=== PATIENT | female | born 1960 | race Caucasian/White ===

== ENCOUNTER → 2016-10-14 | Outpatient (CLI) | payer BC ==
--- NOTE | 2016-10-14 15:50 | MR ---
EXAMINATION TYPE: MR knee LT wo con DATE OF EXAM: 10/14/2016 COMPARISON: Outside left knee x-ray October 01, 2016 HISTORY: Lt knee pain x 1 year, prior surgery TECHNIQUE: Multiplanar, multisequence images of the knee is performed without IV contrast. FINDINGS: MEDIAL MENISCUS: Anterior and posterior horns are intact without tear. LATERAL MENISCUS: Anterior and posterior horns are intact without tear. CRUCIATE LIGAMENTS: The anterior and posterior cruciate ligaments are intact and unremarkable. COLLATERAL LIGAMENTS: The medial collateral ligament and lateral collateral ligament complex are inta ct and unremarkable. EXTENSOR MECHANISM: Visualized quadriceps and patellar tendons are intact. EFFUSION: No significant suprapatellar joint effusion. POPLITEAL CYST: No popliteal/brown cyst. TRICOMPARTMENT SPACES: There is moderate to severe joint space loss patellofemoral compartment with m ild spurring. There is mild to moderate joint space loss and spurring lateral and medial tibiofemoral compartments. Prominent spur from the posterior aspect of the tibia is noted on sagittal image 17 co rrelates with lateral x-ray image. CARTILAGE: Chondromalacia patella is present with thinning of articular cartilage along posterior pat ellar pole, near full-thickness loss is present. There is marked thinning of articular cartilage medi al tibiofemoral compartment with full-thickness loss appreciated on sagittal image 21. BONE MARROW SIGNAL: Heterogeneity of bone marrow signal intensity consistent with red marrow reconver lee ann is present. OTHER: There is moderate superficial infrapatellar fluid. Hoffa's fat pad is maintained. IMPRESSION: 1. No meniscal or ligamentous tear is seen. 2. Fairly moderate to borderline severe tricompartment degenerative changes as detailed above.
== END | disposition home or self-care (01) ==
LOC: RADMRIMAIN 15:09
PROVIDERS: ATTEND Orthopaedic Surgery
DX: M25.562 Pain in left knee (principal)

== ENCOUNTER → 2017-07-24 | Outpatient (CLI) | payer BC | END | disposition home or self-care (01) | LOC: LABPAT 14:46 | PROVIDERS: ATTEND Orthopaedic Surgery | DX: Z01.812 Encounter for preprocedural laboratory examination (principal) | CPT/HCPCS: 87070 ==

== ENCOUNTER 2017-09-01 08:03 | Day surgery (SDC) | payer BC ==
[2017-08-25 11:35] VITALS: BMI 37.9
--- NOTE | 2017-08-31 12:38 | HP ---
HISTORY AND PHYSICAL Jania Beckman is a 57-year-old patient seen with symptomatic left knee osteoarthritis. Treatment options were discussed. She elected to proceed with left total knee arthroplasty. Consent was obtained. Clearance was provided by Dr. Woods. PAST MEDICAL HISTORY: Asthma, hypertension, gastroesophageal reflux disease. PAST SURGICAL HISTORY: section, left knee arthroscopy. MEDICATIONS: Advair, aspirin, atenolol, Prilosec, Singulair. ALLERGIES: ZOCOR, CIPRO, DEMEROL, PRAVACHOL, SYMBICORT, GABAPENTIN, WELLBUTRIN. SOCIAL HISTORY: Patient currently smokes 1 pack of cigarettes daily. PHYSICAL EXAMINATION: Evaluation of the left knee: Range of motion is -3 to 115 degrees. Tenderness medial joint line. Crepitus medial patellofemoral compartments with range of motion. Pain with patellofemoral compression. Ligaments stable. Hip rotation without pain. Distal neurovascular exam intact. RADIOGRAPHS: Radiographs of the left knee revealed severe medial and moderate patellofemoral compartment osteoarthritis. IMPRESSION: 1. Left knee osteoarthritis. 2. Hypertension. 3. Chronic obstructive pulmonary disease. 4. Gastroesophageal reflux disease. PLAN: Left total knee arthroplasty. MMODL / IJN: [id number] /
[~2017-09-01 08:03] MED LIST: ACETAMINOPHEN TAB 500 MG TAB PO ONE; DEXAMETHASONE SOD PHOSPHATE 10 MG/ML 1 ML VIAL IV ONE; HYDROmorphone 0.5 MG/0.5 ML SYRINGE IVP PRN; LIDOCAINE 1% 20 ML VIAL (10MG/ML) FOR IV START INTRADERMA PRN; MELOXICAM 7.5 MG TAB PO ONE; MIDAZOLAM 2 MG/2 ML VIAL IV PRN; ONDANSETRON 4 MG/2 ML VIAL IVP ONE; ONDANSETRON 4 MG/2 ML VIAL IVP PRN; SCOPOLAMINE 1.5MG/72HR PATCH TRANSDERM ONE; TRANEXAMIC ACID 1,000 MG in SODIUM CHLORIDE 0.9% 50 ML IVPB ONE; ceFAZolin IN SWFI 2 GM/20 ML SYRINGE IVP ONE; fentaNYL (PF) 50 MCG/ML 2 ML AMP IV PRN
[2017-09-01] MEDS: LACTATED RINGERS 1,000 ML IV SCH ×4 (08:40→14:15)
[2017-09-01] MEDS ORDERED: fentaNYL (PF) 50 MCG/ML 2 ML AMP ONE (09:54)
[2017-09-01] MEDS ORDERED: TRANEXAMIC ACID 1,000 MG/10 ML VIAL ONE (09:54)
[2017-09-01] MEDS ORDERED: PROPOFOL 10 MG/ML 20 ML VIAL IV ONE (09:54)
[2017-09-01] MEDS ORDERED: SODIUM CHLORIDE 0.9% 100 ML BAG ONE (09:54)
[2017-09-01] MEDS ORDERED: diphenhydrAMINE 50 MG/ML 1 ML VIAL ONE (09:54)
[2017-09-01] MEDS ORDERED: MIDAZOLAM 2 MG/2 ML VIAL ONE (09:54)
[2017-09-01] MEDS ORDERED: LIDOCAINE 1% INJ 10MG/ML (20 ML MDV) ONE (09:54)
[2017-09-01] MEDS ORDERED: ceFAZolin 3,000 MG in SODIUM CHLORIDE 0.9% IRRIGATIO 3,000 ML IRRIGATION ONE (10:33)
[2017-09-01] MEDS: ROPIVACAINE 246.25 MG, EPINEPHrine 0.5 MG, KETOROLAC 30 MG, cloNIDine HCL/PF 80 MCG, WA... MISCELLANE ONE ×10 (10:34→11:31)
[2017-09-01] MEDS ORDERED: ROPIVACAINE 1,100 MG, SODIUM CHLORIDE 0.9% 330 ML MISCELLANE PRN ×2 (10:42)
[2017-09-01] MEDS: LACTATED RINGERS 1,000 ML IV ONE ×2 (11:05→13:37)
[2017-09-01] MEDS ORDERED: LACTATED RINGERS 1,000 ML IV ONE ×4 (11:05)
[2017-09-01] MEDS ORDERED: HYDROcodone/APAP 7.5-325MG 1 EACH TAB PO PRN ×2 (12:00)
[2017-09-01] MEDS ORDERED: HYDROmorphone 0.5 MG/0.5 ML SYRINGE IVP PRN ×3 (12:00)
[2017-09-01] MEDS ORDERED: ONDANSETRON 4 MG/2 ML VIAL IVP PRN (12:00)
[2017-09-01] MEDS ORDERED: NALOXONE 0.4 MG/ML 1 ML VIAL IV PRN (12:00)
[2017-09-01] MEDS ORDERED: hydrOXYzine PAMOATE 25 MG CAP PO PRN (12:00)
--- NOTE | 2017-09-01 12:00 | P.OP ---
Date of Procedure: 09/01/17 Preoperative Diagnosis: Left knee osteoarthritis Postoperative Diagnosis: Left knee osteoarthritis Procedure(s) Performed: Left total knee arthroplasty Implants: 1. Microport evolution MP size 4 left cemented femoral component 2. Microport evolution size 4 left cemented tibial baseplate 3. Microport evolution size 4 left MP CS 12 mm polyethylene tibial insert 4. Microport advanced 35 mm cemented all polyethylene patella Anesthesia: regional (adductor canal catheter), local, spinal Surgeon: Horacio Alva Industrial Design Engineer #1: Titus Hughes Estimated Blood Loss (ml): 42 Pathology: other (Bone) Condition: stable Disposition: PACU Indications for Procedure: 57-year-old patient seen with symptomatic left knee osteoarthritis. After treatment options were discussed, she elected to proceed with total knee arthroplasty. Operative Findings: See description of procedure Description of Procedure: Patient was taken to the operative suite after having an adductor canal catheter placed by the department of anesthesia. Patient underwent a spinal anesthetic by the department of anesthesia. Patient was given preoperative IV intake antibiotics and TXA. A well-padded tourniquet was placed about the [] lower extremity. The lower extremity was then prepped and draped in the normal sterile orthopedic fashion. The extremity was elevated, a tourniquet was insufflated to 350. A standard anterior incision was made sharply through skin. Dissection was taken down through the subcutaneous soft tissues down to the extensor mechanism. A medial arthrotomy was performed, patella was everted and knee was flexed. There was advanced osteoarthritis noted. A proximal tibial cutting guide was positioned. Proximal tibial cut was made. A distal intramedullary femoral cutting guide was positioned, distal femoral cut made. We placed the appropriate sizing guide and selected the appropriate size. A distal 4-in-1 femoral cutting block was positioned, distal femoral cuts were made. We now placed a trial femoral component into position, along with an appropriate size tibial tray and insert. We now took the knee through range of motion and had full extension good flexion and good overall soft tissue balance noted. The patella was everted and a flush cut made with patellar quad tendon. We templated the patella, appropriate drill holes were made. An appropriate trial patella was positioned, knee was taken through full range of motion with the patella tracking very nicely. The trial patella was removed. Drill holes were made through the femoral component. All trial components were removed after marking off the appropriate rotation of the tibia. Retractors were now positioned along the proximal tibia. An appropriate keel punch was made with the appropriate size tibial guide. At this point appropriate size implants were chosen and opened. The joint was irrigated copiously with pulse lavage mechanical irrigation. The deep soft tissues and posterior capsule infiltrated with local analgesic. We mixed antibiotic methylmethacrylate. Once the methyl methacrylate was ready, the tibial component was cemented into place removing any excess methylmethacrylate. The femoral component was cemented into place removing the removing any excess methylmethacrylate. We then inserted the appropriate size polyethylene tibial insert. We made sure that it was locked into position. We took the knee into full extension, and then back in a flexion making sure we had removed any excess methylmethacrylate. The patellar component was then cemented down and secured with clamp. Excess methylmethacrylate removed. We kept the knee in full extension, patellar clamp in position until methylmethacrylate had hardened. Once it had hardened the patellar clamp was removed. The knee was taken through full range of motion. The patella tracked nicely. There was good soft tissue balancing. The tourniquet was now released. Additional hemostasis was achieved via electrocautery. A second gram of TXA was given. The wound was irrigated with pulse lavage mechanical irrigation. The superficial soft tissues were infiltrated local analgesic. The extensor mechanism was repaired with Vicryl. We checked the repair with range of motion and it was stable. The subcutaneous soft tissues were repaired with Vicryl in layers. The skin was approximated with pernio/Dermabond. Sterile dressings were applied followed by loose web roll and Clayton bandage. The patient was transferred to a bed, and taken to recovery in stable and satisfactory condition. Heri BLOCK assisted with the procedure.
--- NOTE | 2017-09-01 12:59 | XR ---
EXAMINATION TYPE: XR knee limited LT DATE OF EXAM: 09/01/2017 COMPARISON: NONE HISTORY: Knee replacement TECHNIQUE: 2 view left knee FINDINGS: Tibial and femoral components of in place. Postsurgical changes are evident within the knee joint space. No acute fractures are evident. IMPRESSION: 1. No acute fractures post knee replacement.
--- NOTE | 2017-09-01 14:00 | P.CONS ---
History of Present Illness - Reason for Consult Consult date: 09/01/17 - Chief Complaint Left knee pain - History of Present Illness 57-year-old female with history of severe bilateral knees osteoarthritis presented to the hospital for left total knee arthroplasty. Patient just came back from surgery, currently she is doing well, asking for food and water. She denied having any knee pain at this moment, no chest pain or shortness of breath. No recent illness, no fevers or chills. No nausea or vomiting, no diarrhea. Patient does have history of COPD and currently she continues to smoke. She tried Wellbutrin and Chantix in the past but both didn't work. Review of Systems 12 point review of system performed, negative except HPI Past Medical History Past Medical History: COPD, GERD/Reflux, Hyperlipidemia, Osteoarthritis (OA) Additional Past Medical History / Comment(s): irregular heartbeat, small stones in gallbladder, History of Any Multi-Drug Resistant Organisms: MRSA Year Discovered:: 2013 MDRO Source:: lower lip Past Surgical History: Section, Orthopedic Surgery Additional Past Surgical History / Comment(s): arthroscopy left knee Past Anesthesia/Blood Transfusion Reactions: No Reported Reaction Past Psychological History: No Psychological Hx Reported Smoking Status: Current every day smoker Past Alcohol Use History: None Reported Additional Past Alcohol Use History / Comment(s): smokes 1 PPD, has smoked for 30 yrs Past Drug Use History: None Reported - Past Family History Sister(s) Family Medical History: Cancer Medications and Allergies Home Medications Medication Instructions Recorded Confirmed Type Aspirin 325 mg PO W/SUPPER 08/25/17 09/01/17 History Atenolol 25 mg PO BID 08/25/17 09/01/17 History Fluticasone/Salmeterol [Advair 1 puff INHALATION RT-BID 08/25/17 09/01/17 History 500-50 Diskus] Ipratropium/Albuterol Sulfate 1 puff INHALATION RT-QID PRN 08/25/17 09/01/17 History [Combivent Respimat Inhaler] L.acidoph,Paracasei, B.lactis 1 cap PO DAILY 08/25/17 09/01/17 History [Probiotic] Multivitamins, Thera [Multivitamin 1 tab PO DAILY 08/25/17 09/01/17 History (formulary)] Goodrich-3 Fatty Acids [Goodrich-3] 1,000 mg PO BID 08/25/17 09/01/17 History Omeprazole [PriLOSEC] 20 mg PO AC-BRKFST 08/25/17 09/01/17 History Spiriva 2.5 Mcg 1 cap INHALATION RT-DAILY@1200 08/25/17 09/01/17 History guaiFENesin-DM 600/30MG [Mucinex 1 tab PO Q12HR PRN 08/25/17 09/01/17 History Dm] Allergies Allergy/AdvReac Type Severity Reaction Status Date / Time simvastatin [From Zocor] Allergy Intermediate Wheezing Verified 09/01/17 13:16 budesonide [From Symbicort] Allergy nervousness Verified 09/01/17 13:16 bupropion [From Wellbutrin] Allergy shaky Verified 09/01/17 13:16 feeling ciprofloxacin [From Cipro] Allergy Rash/Hives Verified 09/01/17 13:16 formoterol [From Symbicort] Allergy nervousness Verified 09/01/17 13:16 gabapentin Allergy blurry Verified 09/01/17 13:16 vision, disoriented, nausea meperidine [From Demerol] Allergy Itching/liseth Verified 09/01/17 13:16 h pravastatin [From Pravachol] Allergy muscle Verified 09/01/17 13:16 pain and cramping Physical Exam Vitals: Vital Signs Temp Pulse Pulse Resp BP BP Pulse Ox 09/01/17 13:00 66 16 131/6 97 09/01/17 12:42 71 16 126/56 96 09/01/17 12:27 67 16 124/61 96 09/01/17 12:12 97.4 F L 69 14 118/81 95 09/01/17 08:40 98.0 F 66 16 134/74 96 Intake and Output 08/31/17 09/01/17 09/01/17 22:59 06:59 14:59 Intake Total 1401 Output Total 42 Balance 1359 Intake: IV 1401 Output: Estimated Blood Loss 42 Other: Weight 97.069 kg Constitutional: No acute distress, conversant, pleasant Eyes:Anicteric sclerae, moist conjunctiva, no lid-lag, PERRLA, ENMT: Oropharynx clear, no erythema, exudates Neck: Supple, FROM, no masses, or JVD, No carotid bruits, No thyromegaly Lungs: Clear to auscultation, Clear to percussion, Normal respiratory effort, no accessory muscle use Cardiovascular: Heart regular in rate and rhythm, No murmurs, gallops, or rubs, No peripheral edema Abdominal: Soft, Nontender, no guarding, rebound or rigidity, Normoactive bowel sounds, No hepatomegaly, No splenomegaly, No palpable mass Skin: Normal temperature, tone, texture, turgor, no induration, No subcutaneous nodules, No rash, lesions, No ulcers Extremities: Surgical dressings applied to the left knee. No digital cyanosis, No clubbing, Pedal pulses intact and symmetrical, Radial pulses intact and symmetrical, No calf tenderness Psychiatric: Alert and oriented to person, place and time, appropriate affect, intact judgement Neuro: Muscles Strength 5/5 in all 4 extremities, Sensation to light touch grossly present throughout, Cranial nerves II-XII grossly intact, no focal sensory deficits Assessment and Plan Plan: Status post left knee total arthroplasty Management per surgery Physical therapy Pain control with opioids DVT prophylaxis Lovenox subcu Smoking Strongly advised to quit Offered nicotine patch but declined COPD/supraventricular tachycardia history/hyperlipidemia/GERD Stable Resume home medications Anticipated date of discharge 1-2 days
[2017-09-01] MEDS ORDERED: IPRATROPIUM-ALBUTEROL 3 ML NEB INHALATION PRN (14:03)
[2017-09-01] MEDS ORDERED: guaiFENesin-DM 600/30MG 1 EACH TAB.ER.12H PO PRN (14:03)
[2017-09-01] MEDS: traMADol 50 MG TAB PO SCH ×3 (14:15→21:34)
[2017-09-01] MEDS: ceFAZolin IN SWFI 2 GM/20 ML SYRINGE IVP SCH (17:18)
[2017-09-01] MEDS ORDERED: ASPIRIN 325 MG TAB PO SCH (17:30)
[2017-09-01] MEDS ORDERED: SENNOSIDES-DOCUSATE SODIUM 1 EACH TAB PO SCH (21:00)
[2017-09-01] MEDS: SYMBICORT 160-4.5 MCG INHALER INHALATION SCH (21:22)
[2017-09-01] MEDS: ATENOLOL 25 MG TAB PO SCH (21:37)
[2017-09-02] MEDS: LACTATED RINGERS 1,000 ML IV SCH ×2 (01:12→08:24)
[2017-09-02] MEDS: ceFAZolin IN SWFI 2 GM/20 ML SYRINGE IVP SCH (01:12)
--- NOTE | 2017-09-02 06:14 | P.PN ---
Progress Note - Text Progress Note Date: 09/02/17 The patient is doing well status post total knee replacement. Her pain is well controlled by a combination of local anesthetic infusion through his adductor canal catheter and oral analgesics. There are no signs of infection around the catheter skin entry site. The local anesthetic infusion will be continued as per protocol.
[2017-09-02] MEDS ORDERED: PANTOPRAZOLE 40 MG TABLET PO SCH (07:30)
[2017-09-02 07:41] VITALS: BP 121/69; PULSE 60; RESP 17; TEMP 98.4
[2017-09-02] MEDS: SYMBICORT 160-4.5 MCG INHALER INHALATION SCH (07:45)
[2017-09-02 07:46] LABS: Basophils % (A) 0 %; Eosinophils % (A) 0 %; HCT 39.3 % (34.0-46.0); HGB 12.7 gm/dL (11.4-16.0); Lymphocytes % (A) 6 %; MCH 29.2 pg (25.0-35.0); MCHC 32.2 g/dL (31.0-37.0); MCV 90.6 fL (80.0-100.0); Monocytes # (A) 0.7 k/uL (0-1.0); Monocytes % (A) 4 %; Neutrophils # (A) 14.1 k/uL (1.3-7.7); Neutrophils % (A) 88 %; Platelet Count 221 k/uL (150-450); RBC 4.34 m/uL (3.80-5.40); RDW 13.7 % (11.5-15.5); WBC 15.9 k/uL (3.8-10.6)
[2017-09-02] MEDS: ATENOLOL 25 MG TAB PO SCH (08:38)
[2017-09-02] MEDS: FAMOTIDINE 20 MG TAB PO SCH ×2 (08:38→09:24)
[2017-09-02] MEDS: traMADol 50 MG TAB PO SCH ×2 (08:39→12:26)
[2017-09-02] MEDS ORDERED: MELOXICAM 7.5 MG TAB PO SCH (09:00)
[2017-09-02] MEDS ORDERED: ENOXAPARIN 30 MG/0.3 ML SYRINGE SQ SCH (09:00)
--- NOTE | 2017-09-02 10:57 | P.PN ---
Subjective Progress Note Date: 09/02/17 Principal diagnosis: Status post left total knee arthroplasty Patient seen today resting in her hospital bed, she appears comfortable. Her pain is well-controlled. She is ambulating well with therapy. She denies chest pain or shortness of breath. Objective - Vital Signs Vital signs: Vital Signs Temp 98.4 F 09/02/17 07:41 Pulse 60 09/02/17 07:41 Resp 17 09/02/17 07:41 BP 121/69 09/02/17 07:41 Pulse Ox 96 09/02/17 07:41 Intake & Output 09/01/17 09/02/17 09/02/17 18:59 06:59 18:59 Intake Total 1401 1080 Output Total 42 Balance 1359 1080 Weight 97.069 kg Intake: IV 1401 Oral 1080 Output: Estimated Blood Loss 42 Other: # Voids 2 # Bowel Movements 0 # Emeses 0 - Exam Left lower extremity: Incision is clean, dry, and intact. The prineo tape is in good condition. There is minimal soft tissue swelling and ecchymosis surrounding the medial and lateral aspects of the incision. Calf is soft, no tenderness with palpation. Plantar flexion, dorsiflexion, EHL, FHL are intact. Sensory exam to light touch throughout the extremity is intact, dorsal pedis pulses 2+. - Labs CBC & Chem 7: 09/02/17 07:13 Labs: Abnormal Lab Results - Last 24 Hours (Table) 09/02/17 Range/Units 07:13 WBC 15.9 H (3.8-10.6) k/uL Neutrophils # 14.1 H (1.3-7.7) k/uL Assessment and Plan Plan: Assessment: 1. Postop day #1 status post left total knee arthroplasty Plan: Pain control, we'll discharge home on oral medication GI and DVT prophylaxis, Xarelto 10 mg daily for 12 days Wound care instructions were discussed Home therapy and nursing after discharge Medical recommendations Discharge planning: Patient will be discharged home today Time with Patient: Less than 30
--- NOTE | 2017-09-02 11:02 | P.DS ---
Providers Date of admission: 09/01/17 11:38 Expected date of discharge: 09/02/17 Attending physician: Horacio Alva Consults: 09/01/17 12:00 Consult Physician Routine Consulting Provider: Isma Nolasco Consult Reason/Comments: Medical management Do you want consulting provider notified?: Yes Primary care physician: Ivanna Woods Hospital Course: Date of admission: 09/02/2007 Date of discharge: 09/03/2007 Admission diagnosis: Status post left total knee arthroplasty Discharge diagnosis: Same Attending physician: Dr. Alva Surgical procedures: Left total knee arthroplasty Brief history: Patient is a 57-year-old female with a history of progressive primary left knee osteoarthritis. At this point patient has failed conservative treatment measures and has opted to proceed with a elective left total knee arthroplasty. Hospital course: Details of patient's surgery can be found in operative report. Patient tolerated the procedure well and was subsequently transported to orthopedic floor. Patient's orthopeidc and medical care was provided daily. Patient had daily laboratory tests performed for evaluation of overall blood counts. Patient had daily physical therapy to include strengthening range of motion as well as education with walker ambulation. Patient had daily CPM usage as part of their physical therapy program. Patient was treated with Lovenox for their postoperative DVT prophylaxis during their inpatient stay. Patient was noted to have a relatively uneventful postoperative course. Patient reported satisfactory pain control with oral pain medications by postoperative day 0. Patient showed satisfactory progress with physical therapy. Patient moved steadily through the program and had no difficulty meeting the goals by postoperative day 0. Given patient's otherwise satisfactory course and having met physical therapy goals, plan is to discharge patient home on postoperative day 1. Discharge condition/disposition: Patient will be discharged home in stable condition. Discharge medications: Instructions are given on resumption of patient's normal daily medications per primary care recommendation, in addition patient will be prescribed [place] 7.5 mg/325 mg, tramadol 50 mg, Colace 100 mg, Xarelto 10 mg . Discharge instructions: 1. Wound care and infection precautions,[keep incision dry and covered while showerin], no lotions, creams, moisturizers. No soaking, tubs, pools, hottubs. Do not scrub over the incision. 2. Weight-bear[as tolerate] with walker / cane until follow-up. 3. Ice and elevate when necessary. Do not exceed 20 minutes per hour with ice pack. 4. Utilize compression sleeve until seen at first follow up appointment. 5. Visiting nursing care. 6. Home physical therapy[including home CP]. 7. Pain meds and anticoagulants per prescription. 8. Pain medication has potential to cause constipation. Increase oral fluid and fiber intake. Contact primary care provider if you have not had a bowel movement within 48 hours after discharge 9. No anti-inflammatory medication until discussed at first post operative visit, this including Motrin, Aleve, Mobic, Diclofenac. 10. Follow up in office at 2 weeks postop with Heri Hughes PA-C 11. Follow up with your primary care doctor 7-10 days after discharge. 12. Contact [facility] with any questions, . Procedures: Left total knee arthroplasty Patient Condition at Discharge: Good Plan - Discharge Summary Discharge Rx Participant: No New Discharge Prescriptions: New Rivaroxaban [Xarelto] 10 mg PO DAILY #12 tab Docusate [Colace] 100 mg PO DAILY #30 capsule HYDROcodone/APAP 7.5-325MG [[place] 7.5] 1 - 2 each PO Q6HR PRN #30 tab PRN Reason: Pain traMADol HCl [Ultram] 50 mg PO Q6H PRN #28 tab PRN Reason: Pain No Action guaiFENesin-DM 600/30MG [Mucinex Dm] 1 tab PO Q12HR PRN PRN Reason: COPD Multivitamins, Thera [Multivitamin (formulary)] 1 tab PO DAILY Hickman-3 Fatty Acids [Hickman-3] 1,000 mg PO BID Fluticasone/Salmeterol [Advair 500-50 Diskus] 1 puff INHALATION RT-BID Aspirin 325 mg PO W/SUPPER Ipratropium/Albuterol Sulfate [Combivent Respimat Inhaler] 1 puff INHALATION RT-QID PRN PRN Reason: Shortness Of Breath Omeprazole [PriLOSEC] 20 mg PO AC-BRKFST Atenolol 25 mg PO BID L.acidoph,Paracasei, B.lactis [Probiotic] 1 cap PO DAILY Spiriva 2.5 Mcg 1 cap INHALATION RT-DAILY@1200 Discharge Medication List Aspirin 325 mg PO W/SUPPER 08/25/17 [History] Atenolol 25 mg PO BID 08/25/17 [History] Fluticasone/Salmeterol [Advair 500-50 Diskus] 1 puff INHALATION RT-BID 08/25/17 [History] Ipratropium/Albuterol Sulfate [Combivent Respimat Inhaler] 1 puff INHALATION RT- QID PRN 08/25/17 [History] L.acidoph,Paracasei, B.lactis [Probiotic] 1 cap PO DAILY 08/25/17 [History] Multivitamins, Thera [Multivitamin (formulary)] 1 tab PO DAILY 08/25/17 [History ] Hickman-3 Fatty Acids [Hickman-3] 1,000 mg PO BID 08/25/17 [History] Omeprazole [PriLOSEC] 20 mg PO AC-BRKFST 08/25/17 [History] Spiriva 2.5 Mcg 1 cap INHALATION RT-DAILY@1200 08/25/17 [History] guaiFENesin-DM 600/30MG [Mucinex Dm] 1 tab PO Q12HR PRN 08/25/17 [History] Rivaroxaban [Xarelto] 10 mg PO DAILY #12 tab 09/01/17 [Rx] Docusate [Colace] 100 mg PO DAILY #30 capsule 09/02/17 [Rx] HYDROcodone/APAP 7.5-325MG [[place] 7.5] 1 - 2 each PO Q6HR PRN #30 tab 09/02/17 [ Rx] traMADol HCl [Ultram] 50 mg PO Q6H PRN #28 tab 09/02/17 [Rx] Follow up Appointment(s)/Referral(s): Ivanna Woods DO [Primary Care Provider] - 09/09/17 1:30 pm Titus Hughes PAC [PHYSICIAN BOW STAPLER] - 09/17/17 4:00 pm Patient Instructions/Handouts: Knee Replacement (DC) Activity/Diet/Wound Care/Special Instructions: Orthopedic Discharge Instructions: 1. Wound care and infection precautions, keep incision dry and covered while showering, no lotions, creams, moisturizers. No soaking, pools, hot tubs. Do not scrub over incision. 2. Weight-bear as tolerated with walker / cane until follow-up. 3. Ice and elevate when necessary. Do not exceed 20 minutes per hour with ice pack. 4. Utilize compression sleeve until seen at first follow up appointment. 5. Visiting nursing care. 6. Home physical therapy including home CPM. 7. Pain meds and anticoagulants per prescription. 8. Pain medication has potential to cause constipation. Increase oral fluid and fiber intake. Contact primary care provider if you have not had a bowel movement within 48 hours after discharge. 9. No anti-inflammatory medication until discussed at first post operative visit, this including Motrin, Aleve, Mobic, Diclofenac. 10. Follow up in office at 2 weeks postop with Heri Hughes PA-C 11. Follow up with your primary care doctor 7-10 days after discharge. 12. Contact [facility] with any questions, . Discharge Disposition: HOME WITH HOME HEALTH SERVICES
[2017-09-02] MEDS ORDERED: MULTIVITAMINS, THERA 1 EACH TAB PO SCH (12:00)
[2017-09-02] MEDS ORDERED: IPRATROPIUM 0.5 MG/2.5 ML NEBU INHALATION SCH (12:00)
--- NOTE | 2017-09-02 12:59 | P.ONQ ---
Anesthesiology Proc Note - PNB - Peripheral Nerve Block Performed Left Adductor Canal Infusion Time Out Performed: Yes Procedure Start Time: :21 Procedure Stop Time: :38 Indication: Acute Post-Operative Pain, Requested by physician Sedation Type: Sedate with meaningful contact maintained Preparation: Sterile Dressing Position: Supine Catheter: Indwelling Needle Types: On-Q Needle Size: 100mm (4") Needle Gauge: 21 Technique: Ultrasound Injectate: 0.5% Ropivacaine (see comment for volume) (ropi .5% 20cc) Blood Aspirated: No Pain Paresthesia on Injection Noted: No Resistance on Injection: Normal Events: Uneventful and Well Tolerated
== END 2017-09-02 13:00 | disposition home health service (06) ==
LOC: OR 08:03 → 2ORMAIN 11:38 → UNDOADMIN 11:38 → 2ORMAIN 12:08 → 3SUR 12:08 → UNDODISIN 09-02 13:00 → OR 09-02 13:00
PROVIDERS: ATTEND Orthopaedic Surgery
DX: M17.0 Bilateral primary osteoarthritis of knee (principal); J44.9 Chronic obstructive pulmonary disease, unspecified; K21.9 Gastro-esophageal reflux disease without esophagitis; I10 Essential (primary) hypertension; E78.5 Hyperlipidemia, unspecified; I47.1 Supraventricular tachycardia; F17.210 Nicotine dependence, cigarettes, uncomplicated; Z79.82 Long term (current) use of aspirin; Z79.51 Long term (current) use of inhaled steroids; Z79.899 Other long term (current) drug therapy; Z88.1 Allergy status to other antibiotic agents; Z88.8 Allergy status to other drugs, medicaments and biological substances; Z88.5 Allergy status to narcotic agent; Z86.14 Personal history of Methicillin resistant Staphylococcus aureus infection
CPT/HCPCS: 64448; 97116; 97161; 85025; 88300; 73560; 27446; C1776; C1713; C1772; J2250; J0171; J1200; J1100; J2405; J0690 ×3; J2001; J3010; J1885; J1650; J2795; J2704; J0735

== ENCOUNTER → 2019-02-12 | Outpatient (CLI) | payer BC ==
--- NOTE | 2019-02-12 13:51 | MR ---
EXAMINATION TYPE: MR neck wo/w con DATE OF EXAM: 02/12/2019 COMPARISON: None HISTORY: Rt anterior neck mass, marker placed CONTRAST: Standard multiplanar, multisequence MRI departmental protocol utilizing 10 mL intravenous Gadavist ga dolinium contrast. Marker is placed at the site of clinical concern. FINDINGS: At the site of clinical concern right anterior neck I do not see evidence for a mass. Subcutaneous fa t appears to be symmetric throughout. There is no evidence for adenopathy. Submandibular glands are s ymmetric as are the parotid glands. Thyroid lobes are free of but distinct nodule. Vascular structure s are symmetric throughout. Visualized intraorbital cranial contents are within normal limits. Globes are symmetric. IMPRESSION: No distinct abnormality identified throughout the neck and more specifically at the site of clinical concern.
== END | disposition home or self-care (01) ==
LOC: RADMRIMAIN 11:33
PROVIDERS: ATTEND Otolaryngology
DX: R22.1 Localized swelling, mass and lump, neck (principal)
CPT/HCPCS: 70543; A9585